=== PATIENT | female | born 1980 | race Caucasian/White ===

== ENCOUNTER 2024-02-01 06:10 | Inpatient (IN) | payer BC ==
[2024-02-01] MEDS: ELECTROLYTE-148 SOLN 500 ML IV ONE (06:45)
[2024-02-01 06:50] VITALS: BMI 31.9
[2024-02-01] MEDS ORDERED: FENTANYL CITRATE/PF 50 MCG/ML VIAL ONE (07:57)
[2024-02-01] MEDS ORDERED: morphine SULFATE/PF 1 MG/2 ML (2cc Syringe - QUVA) ONE (07:57)
[2024-02-01] MEDS: CITRIC ACID/SODIUM CITRATE 30 ML UNIT-DOSE CUP PO ONE (08:00)
[2024-02-01] MEDS: ELECTROLYTE-148 SOLN 1,000 ML IV SCH (08:15)
[2024-02-01] MEDS ORDERED: ONDANSETRON 4 MG/2 ML VIAL ONE (08:26)
[2024-02-01] MEDS ORDERED: OXYTOCIN 10 UNITS/ML VIAL ONE ×2 (09:10→09:17)
[2024-02-01 09:55] LABS: CORD BASE EXCESS -2.8 mmol/L (0-2); CORD HCO3 22.5 mmHg (20-29); CORD PCO2 41.2 mmHg (30-78); CORD pH 7.356 (7.14-7.44)
[2024-02-01 10:01] LABS: CORD HCO3 25.9 mmHg (20-29); CORD PCO2 65.7 mmHg (30-78); CORD pH 7.213 (7.14-7.44)
[2024-02-01] MEDS ORDERED: OXYTOCIN 20 UNITS in 0.9% NS 20 UNIT/1,000 ML INFUS.BAG IV ONE (10:28)
[2024-02-01] MEDS: OXYTOCIN 20 UNITS in 0.9% NS 20 UNIT/1,000 ML INFUS.BAG IV SCH (10:30)
[2024-02-01] MEDS ORDERED: BENZOCAINE 28 GM HEMORRHOIDAL OINTMENT TP PRN (13:22)
[2024-02-01] MEDS ORDERED: METHYLERGONOVINE MALEATE 0.2 MG/1 ML AMP IM PRN (13:22)
[2024-02-01] MEDS ORDERED: WITCH HAZEL 50% (TUCKS) 40 PAD/JAR PAD TP PRN (13:22)
[2024-02-01] MEDS ORDERED: BENZOCAINE 20% 57 GM BOTTLE TP PRN (13:22)
[2024-02-01] MEDS: ACETAMINOPHEN 1000 MG/100 ML BAG IVPB PRN (18:18)
[2024-02-02] MEDS: IBUPROFEN 800 MG/8 ML IJ IVPB PRN (00:42)
[2024-02-02] MEDS ORDERED: oxyCODONE HCL 5 MG TABLET PO PRN ×2 (01:22)
[2024-02-02] MEDS: ACETAMINOPHEN 325 MG TABLET (FP) PO PRN (04:57)
[2024-02-02 07:44] LABS: BASO % 0.5 % (0-2.0); EOS % 2.9 % (0-4.5); HEMATOCRIT 32.7 % (32.4-45.2); MCH 30.2 pg (25.7-33.7); MCHC 33.7 g/dl (32.0-36.0); MEAN CELL VOLUME 89.5 fl (80-96); MEAN PLT VOLUME 10.3 fl (7.5-11.1); MONO % 4.9 % (3.8-10.2); NEUT % 78.7 % (42.8-82.8); PLATELET COUNT 199 10^3/uL (134-434); RBC 3.65 M/mm3 (3.60-5.2); RDW 14.6 % (11.6-15.6); WHITE BLOOD COUNT 12.3 K/mm3 (4.0-10.0)
[2024-02-02] MEDS: IBUPROFEN 600 MG TABLET (FP) PO PRN (10:02)
[2024-02-02] MEDS: SIMETHICONE 80 MG TAB.CHEW (FP) PO PRN (10:02)
[2024-02-02] MEDS: ENOXAPARIN NA (PORCINE) 40 MG/0.4 ML DISP.SYRIN SQ SCH (10:03)
[2024-02-02] MEDS ORDERED: BISACODYL 10 MG SUPP.RECT RC PRN (13:22)
[2024-02-03] MEDS: SENNOSIDES/DOCUSATE COMBO (SENNA PLUS) TABLET (UD) PO SCH (21:31)
[2024-02-04 08:27] VITALS: RESP 18
[2024-02-04 08:38] LABS: BASO % 0.4 % (0-2.0); EOS % 5.6 % (0-4.5); HEMATOCRIT 32.4 % (32.4-45.2); HEMOGLOBIN 10.6 GM/dL (10.7-15.3); LYMPH % 19.2 % (8-40); MCH 29.9 pg (25.7-33.7); MCHC 32.6 g/dl (32.0-36.0); MEAN CELL VOLUME 91.7 fl (80-96); MEAN PLT VOLUME 10.2 fl (7.5-11.1); MONO % 3.7 % (3.8-10.2); NEUT % 71.1 % (42.8-82.8); PLATELET COUNT 226 10^3/uL (134-434); RBC 3.54 M/mm3 (3.60-5.2); RDW 14.8 % (11.6-15.6); WHITE BLOOD COUNT 10.2 K/mm3 (4.0-10.0)
[2024-02-05 10:25] VITALS: BP 118/71; PULSE 88; TEMP 97.7
== END 2024-02-05 14:18 | disposition home or self-care (01) | DRG 788 ==
LOC: JLDR 06:10 → UNDOADMIN 06:10 → J3W 13:00
PROVIDERS: ADMIT Obstetrics & Gynecology; ATTEND Obstetrics & Gynecology
PROC: 10D00Z1 Extraction of Products of Conception, Low, Open Approach (ICD-10-PCS; principal; 2024-02-01)
DX: O32.1XX0 Maternal care for breech presentation, not applicable or unspecified (principal); O69.81X0 Labor and delivery complicated by cord around neck, without compression, not applicable or unspecified; O24.420 Gestational diabetes mellitus in childbirth, diet controlled; O75.89 Other specified complications of labor and delivery; N85.8 Other specified noninflammatory disorders of uterus; Z3A.37 37 weeks gestation of pregnancy; Z37.0 Single live birth
CPT/HCPCS: 36415; 36600; 82803; 82962; 85025; 86900; 88307-TC; 94010; J0131